=== PATIENT | male | born 2005 | race Asian ===

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

== ENCOUNTER 2024-06-12 07:43 | Emergency (ER) | payer MEDICAID, OTHER ==
[~2024-06-12] VITALS: Ht 175.3 cm; Wt 59.0 kg
[~2024-06-12 07:43] MED LIST: CIPR250T4 PO; MUPI15CR12 TP
[2024-06-12 07:47] VITALS: BP_SYST 126; PULSE 76; RESP 18; TEMP 97.6; O2SAT 97
[2024-06-12] MEDS: ONDANSETRON HCL 4 MG/2 ML VIAL IVP ONE (09:07)
[2024-06-12] MEDS: MORPHINE 4 MG INJ. 4 MG/ML VIAL IVP ONE (09:08)
[2024-06-12 09:51] LABS: BASOPHILS % (AUTO) 0.5 % (0.0-2.0); EOSINOPHILS # (AUTO) 0.1 K/uL (0.0-0.4); EOSINOPHILS % (AUTO) 1.8 % (0.0-4.0); HEMATOCRIT 46.6 % (36-54); HEMOGLOBIN 16.4 g/dL (14.0-18.0); LYMPHOCYTES # (AUTO) 1.8 K/uL (1.0-5.5); LYMPHOCYTES % (AUTO) 29.9 % (20.5-51.5); MEAN CORPUSCULAR HEMOGLOBIN 31 pg (27-31); MEAN CORPUSCULAR HGB CONC 35 % (32-36); MEAN CORPUSCULAR VOLUME 87 fL (79.0-98.0); MONOCYTES # (AUTO) 0.7 K/uL (0.0-1.0); MONOCYTES % (AUTO) 11.3 % (1.7-9.3); NEUTROPHILS # (AUTO) 3.5 K/uL (1.8-7.7); NEUTROPHILS % (AUTO) 56.5 % (40.0-70.0); PLATELET COUNT (AUTO) 300 K/uL (130-430); RED BLOOD CELL COUNT(AUTO) 5.33 MIL/uL (4.2-6.2); WHITE BLOOD COUNT (AUTO) 6.2 K/uL (4.5-11.0)
[2024-06-12 10:41] LABS: ALBUMIN 4.1 g/dL (3.4-4.8); BILIRUBIN,DIRECT 0.3 mg/dL (0.0-0.3); CALCIUM 9.2 mg/dL (8.4-11.0); CREATININE 1.11 mg/dL (0.55-1.30); TOTAL BILIRUBIN 1.7 mg/dL (0.0-1.0); TOTAL PROTEIN, SERUM 7.8 g/dL (6.4-8.3)
[2024-06-12] MEDS ORDERED: ACET-2634 PO (11:31)
[2024-06-12] MEDS ORDERED: ONDA-8 TL (11:31)
[2024-06-12 11:47] VITALS: BP_SYST 126; PULSE 50; RESP 16; TEMP 97.6; O2SAT 99
== END 2024-06-12 11:47 | disposition home or self-care (01) ==
LOC: SED 07:43
DX: K52.9 Noninfective gastroenteritis and colitis, unspecified (principal); R10.84 Generalized abdominal pain; R11.2 Nausea with vomiting, unspecified; Z79.899 Other long term (current) drug therapy; Z79.2 Long term (current) use of antibiotics
CPT/HCPCS: 99285; 74176; 96374; 96375; 80076; 80048; 83690; 85025; 36415; J2405; J2270